=== PATIENT | female | born 1945 | race Caucasian/White ===

== ENCOUNTER → 2019-06-04 | Outpatient (CLI) | payer MEDICARE ==
[~2019-06-04] MED LIST: ALBU8.5H2 IH; ALPR0.25 PO; CLON0.1T14 PO; DIPH25TA82 PO; FLT05NA16 NS; HOLD METFORMIN - RECEIVED CONTRAST 20 ML VIAL IV SCH; HYDR28.32 TOP; IOHEXOL 350 MG/ML 100 ML (OMNIPAQUE 350) VIAL IV ONE; LOSA100T7 PO; METO100T5 PO; MONT10TA24 PO; NS 100 ML (IVPB) BAG IV ONE; ROPI1TAB40 PO; TIOT18CA2 IH; TRAM50TA2 PO; VILA40TA PO; [UNRECOGNIZED DRUG - OTHER] IH
[2019-06-04 13:14] LABS: CREATININE SERUM 0.96 MG/DL (0.60-1.30)
[2019-06-04 13:47] LABS: ABG BASE EXCESS -1.3 MMOL/L (-2.5-2.5); ABG OXYGEN SATURATION 94 % (94-100); ABG PCO2 34 MMHG (35-45); ABG PH 7.44 (7.37-7.43); ABG PO2 65 MMHG (79-93); ABG TCO2 23.5 MMOL/L (21.0-31.0)
[2019-06-04 13:48] LABS: ALLENS TEST YES-POS; INSPIRED O2 ROOM AIR; PATIENT TEMP 36.3; VENTILATOR NO
--- NOTE | 2019-06-04 15:40 | Diagnostic Imaging Report ---
PROCEDURE: CT chest with contrast only. TECHNIQUE: Multiple contiguous axial images were obtained through the chest after administration of intravenous contrast. Auto Exposure Controls were utilized during the CT exam to meet ALARA standards for radiation dose reduction. DATE: June 04, 2019. COMPARISON: Chest radiograph July 01, 2014. INDICATION: 73-year-old female, dyspnea. Shortness of breath. FINDINGS: There are no upper lobe predominant changes of emphysema. There is no identified pulmonary nodule or lung mass. No focal airspace consolidation. There is no pneumothorax. There is no pleural effusion. The central airways are patent. There are coronary artery calcifications and additional areas of atherosclerotic disease. The heart is not enlarged. There is no pericardial effusion. There is no identified abnormally enlarged mediastinal, hilar, or axillary lymph node which meets CT size criteria for adenopathy. There is fatty replacement of the pancreatic parenchyma, particularly in the region of the pancreatic head. There is an accessory splenule on axial image 122. The liver appears diffusely low in attenuation suggesting diffuse fatty infiltration of the liver. There are multilevel degenerative changes of the spine. There are anchors in the right humeral head. 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 There is no identified acute bony abnormality. IMPRESSION: CT CHEST. 1. No identified acute cardiopulmonary abnormality. 2. Upper lobe predominant changes of emphysema. 3. Diffuse fatty infiltration of the liver. Dictated by: Dictated on workstation # [id number]
== END ==
LOC: RT 12:23
PROVIDERS: ATTEND Nurse Practitioner Family
DX: J43.9 Emphysema, unspecified (principal); K76.0 Fatty (change of) liver, not elsewhere classified; J30.9 Allergic rhinitis, unspecified; G47.33 Obstructive sleep apnea (adult) (pediatric)
CPT/HCPCS: 36415; 36600; 71260; 82565; 82805; 84520

== ENCOUNTER → 2019-07-16 | Outpatient (CLI) | payer MEDICARE ==
[~2019-07-16] MED LIST changes: -HOLD METFORMIN - RECEIVED CONTRAST 20 ML VIAL IV SCH; -IOHEXOL 350 MG/ML 100 ML (OMNIPAQUE 350) VIAL IV ONE; -NS 100 ML (IVPB) BAG IV ONE; +RT-ALBUTEROL SULF 2.5 MG/3 ML PRE-MIX VIAL INH ONE
== END ==
LOC: RT 10:01
PROVIDERS: ATTEND Nurse Practitioner Family
DX: J30.9 Allergic rhinitis, unspecified (principal); G47.33 Obstructive sleep apnea (adult) (pediatric); J45.909 Unspecified asthma, uncomplicated
CPT/HCPCS: 94060; 94726; 94729